=== PATIENT | female | born 1990 | race Caucasian/White ===

== ENCOUNTER 2018-08-23 23:23 | Emergency (ER) | payer SELFPAY ==
[2018-08-23 23:39] VITALS: BP 123/90
[2018-08-24] MEDS ORDERED: NORMAL SALINE 1000 ML 1,000 ML IV ONE (01:31)
[2018-08-24] MEDS ORDERED: DIPHENHYDRAMINE HCL 50 MG/ML VIAL IV ONE (01:31)
[2018-08-24] MEDS ORDERED: PROCHLORPERAZINE EDISYLATE INJ 10 MG/2 ML VIAL IV ONE (01:31)
--- NOTE | 2018-08-24 01:32 | ER Document Report ---
ED Medical Screen (RME) - General Chief Complaint: Headache <24 hrs old Stated Complaint: HEADACHE/VOMITING Time Seen by Provider: 08/24/18 01:31 Primary Care Provider: VALERIANO VELIZ FNP [Primary Care Provider] - Follow up as needed Information source: Patient Notes: Patient states that she was putting her child to bed around 930 this evening and had a sudden onset of severe headache that reached its maximum intensity shortly after starting. Patient states she did have nausea and vomited one time. Patient states headache pain has persisted. Patient did take Aleve without any improvement. Patient denies any fever head injury or history of migraines. I have greeted and performed a rapid initial assessment of this patient. A comprehensive ED assessment and evaluation of the patient, analysis of test results and completion of the medical decision making process will be conducted by additional ED providers. TRAVEL OUTSIDE OF THE [place] IN LAST 30 DAYS: No Physical Exam - Vital signs Vitals: Temp Pulse Resp BP Pulse Ox 97.8 F 98 16 123/90 H 100 08/23/18 23:37 08/23/18 23:37 08/23/18 23:37 08/23/18 23:37 08/23/18 23:37 - Neurological Neuro grossly intact: Yes Cognition: Normal [place] Coma Scale Eye Opening: Spontaneous [place] Coma Scale Verbal: Oriented Yolanda Coma Scale Motor: Obeys Commands Yolanda Coma Scale Total: 15 Course - Vital Signs Vital signs: Temp Pulse Resp BP Pulse Ox 97.8 F 98 16 123/90 H 100 08/23/18 23:37 08/23/18 23:37 08/23/18 23:37 08/23/18 23:37 08/23/18 23:37 Doctor's Discharge - Discharge Referrals: VALERIANO VELIZ FNP [Primary Care Provider] - Follow up as needed
== END 2018-08-24 04:00 | disposition left against medical advice (07) ==
LOC: ER 23:23
DX: R51 Headache (principal); R11.2 Nausea with vomiting, unspecified; Z53.20 Procedure and treatment not carried out because of patient's decision for unspecified reasons
CPT/HCPCS: 99281